=== PATIENT | female | born 1940 | race Caucasian/White ===

== ENCOUNTER 2019-01-01 10:47 | Inpatient (IN) ==
[2019-01-01] MEDS ORDERED: *HR* HYDROcodone/Acet 5/325 mg TABLET PO PRN (22:30)
[2019-01-02] MEDS: Acetaminophen 325 MG TABLET PO PRN ×2 (05:12→14:40)
[2019-01-02] MEDS ORDERED: *HR* Heparin 5,000 UNIT/ML VIAL SQ SCH (06:00)
[2019-01-02] MEDS ORDERED: Aspirin Enteric Coated 81 MG Tablet PO SCH (09:00)
[2019-01-02] MEDS: Cholecalciferol (D-3) 1,000 UNIT TABLET PO SCH (09:25)
[2019-01-02] MEDS ORDERED: *HR* HYDROcodone/Acet 5/325 mg TABLET PO PRN ×2 (09:34→09:35)
--- NOTE | 2019-01-02 15:42 | Internal Med History&Physical ---
Date of Encounter: 01/02/19 Time of Encounter: 15:15 Assessment and Plan (1) Fracture, intertrochanteric, left femur Current visit: No Status: Acute Status post nailing repair. Continue therapy intervention. Qualifiers: Encounter type: initial encounter Fracture type: closed Qualified Code(s): S72.142A - Displaced intertrochanteric fracture of left femur, initial encounter for closed fracture (2) Fracture of left distal radius Current visit: No Status: Acute Status post plate and screw repair. Continue therapy intervention. Qualifiers: Encounter type: initial encounter Fracture type: closed Fracture morphology: unspecified fracture morphology Qualified Code(s): S52.502A - Unspecified fracture of the lower end of left radius, initial encounter for closed fracture (3) Anemia Current visit: Yes Status: Acute Will hold aspirin. Use Lovenox for DVT prophylaxis. Check anemia testing in a.m. Qualifiers: Anemia type: unspecified type Qualified Code(s): D64.9 - Anemia, unspecified Internal Medicine - H&P: HPI Chief complaint: Right arm and leg fracture Admitted From: Hospital to Hospital Transfer Plans for Post Hospital Care: Home History of present illness: Ms. Torres is a 78 year old female who is transferred to [facility] swing bed after a December 27 [facility] stay following a fall at home with left femoral neck and radius fracture. She underwent ORIF surgical repair on 12/28/2018. Her postop course was unremarkable and she was discharged to [facility] swing bed for ongoing rehabilitation therapy prior to returning to independent living. 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 She denies gout or other bone joint or muscle disorders. Past Med Surg Social Fam HX - Past Medical History Medical history: no medical history Additional medical history: acid reflux, retinal artery occlusion Psychiatric history: anxiety - Past Surgical History Surgical History: non-contributory Additional surgical history: benign breast tumor removed x2 - Social History Smoking Status: Never smoker Smokeless Tobacco Status: No Alcohol use: none Drug use: none - Family History Brother Hx Family Cancer: Yes Sister Living Status: Hx Family Respiratory Disorders: Yes (COPD) Internal Medicine - H&P: Meds Sertraline [Zoloft] 50 mg PO DAILY 12/27/18 [History] Aspirin [Lo-Dose Aspirin EC] 81 mg PO QPM 12/28/18 [History] Cholecalciferol (D-3) [Vitamin D] 1,000 unit PO DAILY 12/28/18 [History] Enoxaparin [Lovenox] 30 mg SQ DAILY #30 syr 12/31/18 [Rx] HYDROcodone/Acet 5/325 mg [[place] 5-325 mg] 1 tab PO Q4H PRN 7 Days #10 tab 12/31/18 [Rx] Allergy/AdvReac Type Severity Reaction Status Date / Time No Known Allergies Allergy Verified 12/29/18 14:36 All Systems PM: A 10-system review of systems was performed and is negative for pertinent findings except as documented above in the HPI. Review of systems: Gen.: She states her weight has been stable for several months Cardiovascular: She denies hypertension SD heart failure angina DVT or pulmonary embolus Respiratory: She is a lifelong nonsmoker and denies chronic lung disease GI: She denies disorders of her liver gallbladder or exocrine pancreas : She has had kidney stones remotely. She denies other kidney or bladder disorders. 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 She denies other large distribution strokes or seizures. Endocrine: She denies diabetes thyroid disease or hyperlipidemia Hematology/oncology: She denies blood disorders cancers or anemia Psychiatric: She is on Zoloft but is unsure why. She states she has some anxie ty but denies other mental health diagnoses. [place] skeletal: As per history of present illness - Constitutional Vitals: Temp Pulse Resp BP Pulse Ox 98.4 F 66 16 117/62 97 01/02/19 14:26 01/02/19 14:26 01/02/19 14:26 01/02/19 14:26 01/02/19 14:26 Exam: Gen.: She is a well-developed lean female resting comfortably in bed who appears in no acute distress HEENT: Head is atraumatic and normocephalic. Eyes: EOMI. There is no scleral icterus. Mouth: Mucosa is moist. Neck: Supple and nontender. There is no thyromegaly or adenopathy noted. Heart: Regular without murmurs gallops or ectopics Lungs: No wheezes or crackles are heard. Abdomen: Soft and nontender. No masses or guarding are noted. Extremities: She is wearing a left arm immobilizer. She is wearing NICCI hose which I did not remove. There is no edema palpated through the NICCI hose. She has mild DJD changes of her hands. Neurologic: Mental status: She is talkative and a good historian. Cranial nerves: Smile is symmetric. Forehead wrinkles bilaterally. Tongue protrudes midline. EOMI. Motor: There is no pronator drift. Cerebellar: Finger to nose is intact bilaterally. Skin: Warm and dry
[2019-01-03] MEDS: Acetaminophen 325 MG TABLET PO PRN (01:05)
[2019-01-03] MEDS: traMADol 50 MG TABLET PO PRN ×2 (04:21→16:42)
[2019-01-03] MEDS: *HR* Enoxaparin 30 MG/0.3 ML SYRINGE SQ SCH (06:08)
[2019-01-03 06:40] LABS: Basophils # 0.1 K/mcL (0.0-0.2); Basophils % 0.7 %; Eosinophils # 0.3 K/mcL (0.0-0.6); Eosinophils % 4.4 %; Hemoglobin 8.8 g/dL (11.5-15.4); Immature Granulocytes % 0.5 % (0-4); Lymphocytes # 2.2 K/mcL (0.6-4.6); Lymphocytes % 30.1 %; Mean Corpuscular HGB Conc 32.6 g/dL (31.6-35.5); Mean Corpuscular Hemoglobin 29.8 pg (28.0-33.3); Mean Corpuscular Volume 91.5 fL (83.0-100.0); Monocytes # 0.7 K/mcL (0.0-1.3); Monocytes % 10.1 %; Platelet Count 308 K/mcL (140-400); Red Blood Count 2.95 M/mcL (3.82-4.97); Red Cell Distribution Width 15.6 % (11.5-14.5); Segmented Neutrophils % 54.2 %
[2019-01-03 08:57] LABS: % Iron Saturation 20 % (15-50); Iron 56 mcg/dL (50-170); Transferrin 200 mg/dL (203-362)
[2019-01-03 09:15] LABS: Ferritin 106 ng/mL (10-120)
[2019-01-03 09:19] LABS: Folate 13.1 ng/mL (3.0-16.0)
[2019-01-03] MEDS: Cholecalciferol (D-3) 1,000 UNIT TABLET PO SCH (10:01)
--- NOTE | 2019-01-03 12:12 | Internal Med Progress Note ---
Date of Encounter: 01/03/19 Time of Encounter: 12:04 - Assessment and plan (1) Fracture, intertrochanteric, left femur Current Visit: No Status: Acute Assessment and plan: January 03. Status post nailing repair. Continue therapy intervention. Continue Lovenox for DVT prophylaxis. Qualifiers: Encounter type: initial encounter Fracture type: closed Qualified Code(s): S72.142A - Displaced intertrochanteric fracture of left femur, initial encounter for closed fracture (2) Fracture of left distal radius Current Visit: No Status: Acute Assessment and plan: January 03. Status post plate and screw repair. Continue therapy. Qualifiers: Encounter type: initial encounter Fracture type: closed Fracture morphology: unspecified fracture morphology Qualified Code(s): S52.502A - Unspecified fracture of the lower end of left radius, initial encounter for closed fracture (3) Anemia Current Visit: Yes Status: Acute Assessment and plan: January 03. Hemoglobin improved to 8.8. Restart aspirin. She states it was originally given for past "stroke" involving her left eye. Qualifiers: Anemia type: unspecified type Qualified Code(s): D64.9 - Anemia, unspecified - Subjective Interval history: January 03. She has no new complaints and feels well. - Constitutional Vitals: Temp Pulse Resp BP Pulse Ox 98.3 F 60 16 114/67 95 01/03/19 06:23 01/03/19 06:23 01/03/19 06:23 01/03/19 06:23 01/03/19 06:23 Exam: She is resting comfortably in bed and appears in no acute distress. Her affect is bright and cheerful. I reviewed her medications and lab results. Internal Medicine: Result - Labs CBC & Chem 7: 01/03/19 06:09 Labs: Short CBC 01/03/19 Range/Units 06:09 WBC 7.3 (4.3-11.1) K/mcL Hgb 8.8 L (11.5-15.4) g/dL Hct 27.0 L (35.3-44.9) % Plt Count 308 (140-400) K/mcL Neutrophils # 4.0 (1.6-8.9) K/mcL Consult Discharge Plan - Plan Referrals: Elkin Bobby MD [Primary Care Provider] - 1 week
[2019-01-04] MEDS: *HR* Enoxaparin 30 MG/0.3 ML SYRINGE SQ SCH (05:28)
[2019-01-04] MEDS: traMADol 50 MG TABLET PO PRN ×2 (05:29→13:47)
[2019-01-04] MEDS: Aspirin Enteric Coated 81 MG Tablet PO SCH (08:58)
[2019-01-04] MEDS: Cholecalciferol (D-3) 1,000 UNIT TABLET PO SCH (08:58)
[2019-01-05] MEDS: traMADol 50 MG TABLET PO PRN ×3 (00:29→18:48)
[2019-01-05] MEDS: *HR* Enoxaparin 30 MG/0.3 ML SYRINGE SQ SCH (06:09)
[2019-01-05] MEDS: Cholecalciferol (D-3) 1,000 UNIT TABLET PO SCH (09:55)
[2019-01-05] MEDS: Aspirin Enteric Coated 81 MG Tablet PO SCH (09:55)
[2019-01-06] MEDS: Acetaminophen 325 MG TABLET PO PRN (03:53)
[2019-01-06] MEDS: *HR* Enoxaparin 30 MG/0.3 ML SYRINGE SQ SCH (05:43)
[2019-01-06] MEDS: traMADol 50 MG TABLET PO PRN ×2 (05:46→11:27)
[2019-01-06 06:49] LABS: Basophils # 0.1 K/mcL (0.0-0.2); Basophils % 0.8 %; Eosinophils # 0.3 K/mcL (0.0-0.6); Eosinophils % 3.4 %; Hematocrit 30.2 % (35.3-44.9); Hemoglobin 9.6 g/dL (11.5-15.4); Immature Granulocytes % 0.8 % (0-4); Lymphocytes # 2.5 K/mcL (0.6-4.6); Lymphocytes % 30.2 %; Mean Corpuscular HGB Conc 31.8 g/dL (31.6-35.5); Mean Corpuscular Hemoglobin 29.7 pg (28.0-33.3); Mean Corpuscular Volume 93.5 fL (83.0-100.0); Mean Platelet Volume 8.8 fL (9.4-12.4); Monocytes # 0.9 K/mcL (0.0-1.3); Monocytes % 11.2 %; Neutrophils # 4.4 K/mcL (1.6-8.9); Platelet Count 457 K/mcL (140-400); Red Blood Count 3.23 M/mcL (3.82-4.97); Red Cell Distribution Width 15.8 % (11.5-14.5); Segmented Neutrophils % 53.6 %
[2019-01-06] MEDS: Aspirin Enteric Coated 81 MG Tablet PO SCH (08:36)
[2019-01-06] MEDS: Cholecalciferol (D-3) 1,000 UNIT TABLET PO SCH (08:36)
[2019-01-06] MEDS: Bisacodyl 10 MG RECTAL SUPPOSITORY RC PRN (11:19)
--- NOTE | 2019-01-06 12:02 | Internal Med Progress Note ---
Date of Encounter: 01/06/19 Time of Encounter: 11:52 - Assessment and plan (1) Fracture, intertrochanteric, left femur Current Visit: No Status: Acute Assessment and plan: January 03. Status post nailing repair. Continue therapy intervention. Continue Lovenox for DVT prophylaxis. January 06. Change Tylenol to scheduled. Continue Ultram when necessary. Qualifiers: Encounter type: initial encounter Fracture type: closed Qualified Code(s): S72.142A - Displaced intertrochanteric fracture of left femur, initial encounter for closed fracture (2) Fracture of left distal radius Current Visit: No Status: Acute Assessment and plan: January 03. Status post plate and screw repair. Continue therapy. Qualifiers: Encounter type: initial encounter Fracture type: closed Fracture mo rphology: unspecified fracture morphology Qualified Code(s): S52.502A - Unspecified fracture of the lower end of left radius, initial encounter for closed fracture (3) Anemia Current Visit: Yes Status: Acute Assessment and plan: January 03. Hemoglobin improved to 8.8. Restart aspirin. She states it was originally given for past "stroke" involving her left eye. January 06. Hemoglobin improved to 9.6. Continue to monitor Qualifiers: Anemia type: unspecified type Qualified Code(s): D64.9 - Anemia, unspe cified - Subjective Interval history: January 03. She has no new complaints and feels well. January 06. She has no new complaints. She reports pain and her left upper leg and slight pain in her left arm. - Constitutional Vitals: Temp Pulse Resp BP Pulse Ox 98.3 F 69 18 120/68 96 01/06/19 06:37 01/06/19 06:37 01/06/19 06:37 01/06/19 06:37 01/06/19 06:37 Exam: She is sitting on the side of bed resting comfortably. Her affect is bright and cheerful. I reviewed her medications and lab results. Internal Medicine: Result - Labs CBC & Chem 7: 01/06/19 05:35 Labs: Short CBC 01/06/19 Range/Units 05:35 WBC 8.3 (4.3-11.1) K/mcL Hgb 9.6 L (11.5-15.4) g/dL Hct 30.2 L (35.3-44.9) % Plt Count 457 H (140-400) K/mcL Neutrophils # 4.4 (1.6-8.9) K/mcL - VTE Documentation of Mechanical Device: Graduated compression elastic hosiery Consult Discharge Plan - Plan Referrals: Elkin Bobby MD [Primary Care Provider] - 1 week
[2019-01-06] MEDS: Acetaminophen 325 MG TABLET PO SCH ×2 (13:27→17:37)
[2019-01-07] MEDS: Acetaminophen 325 MG TABLET PO SCH ×3 (00:46→13:07)
[2019-01-07] MEDS: *HR* Enoxaparin 30 MG/0.3 ML SYRINGE SQ SCH (06:25)
[2019-01-07] MEDS ORDERED: Ondansetron ODT 4 MG TAB.RAPDIS SL PRN (09:28)
[2019-01-07] MEDS: traMADol 50 MG TABLET PO PRN (09:34)
[2019-01-07] MEDS: Aspirin Enteric Coated 81 MG Tablet PO SCH (09:34)
[2019-01-07] MEDS: Cholecalciferol (D-3) 1,000 UNIT TABLET PO SCH (09:34)
[2019-01-08] MEDS: Acetaminophen 325 MG TABLET PO SCH ×5 (00:13→20:57)
[2019-01-08] MEDS: *HR* Enoxaparin 30 MG/0.3 ML SYRINGE SQ SCH (06:32)
[2019-01-08] MEDS: Cholecalciferol (D-3) 1,000 UNIT TABLET PO SCH (07:49)
[2019-01-08] MEDS: Aspirin Enteric Coated 81 MG Tablet PO SCH (07:50)
--- NOTE | 2019-01-08 11:18 | Internal Med Progress Note ---
Date of Encounter: 01/08/19 Time of Encounter: 11:10 - Assessment and plan (1) Fracture, intertrochanteric, left femur Current Visit: No Status: Acute Assessment and plan: January 03. Status post nailing repair. Continue therapy intervention. Continue Lovenox for DVT prophylaxis. January 06. Change Tylenol to scheduled. Continue Ultram when necessary. Qualifiers: Encounter type: initial encounter Fracture type: closed Qualified Code(s): S72.142A - Displaced intertrochanteric fracture of left femur, initial encounter for closed fracture (2) Fracture of left distal radius Current Visit: No Status: Acute Assessment and plan: January 03. Status post plate and screw repair. Continue therapy. Qualifiers: Encounter type: initial encounter Fracture type: closed Fracture mo rphology: unspecified fracture morphology Qualified Code(s): S52.502A - Unspecified fracture of the lower end of left radius, initial encounter for closed fracture (3) Anemia Current Visit: Yes Status: Acute Assessment and plan: January 03. Hemoglobin improved to 8.8. Restart aspirin. She states it was originally given for past "stroke" involving her left eye. January 06. Hemoglobin improved to 9.6. Continue to monitor Qualifiers: Anemia type: unspecified type Qualified Code(s): D64.9 - Anemia, unspe cified - Subjective Interval history: January 03. She has no new complaints and feels well. January 06. She has no new complaints. She reports pain and her left upper leg and slight pain in her left arm. January 08. She has no new complaints and feels better. She was informed insurance has determined she will be discharged home 01/10/2019. - Constitutional Vitals: Temp Pulse Resp BP Pulse Ox 97.9 F 68 13 134/68 97 01/08/19 06:27 01/08/19 06:27 01/08/19 06:27 01/08/19 06:27 01/08/19 06:27 Exam: She is resting comfortably on the side of the bed and appears in no acute distress. Her affect is cheerful. She was appropriate in conversation. I reviewed her medications and lab results. Internal Medicine: Result - Labs CBC & Chem 7: 01/06/19 05:35 - VTE Documentation of Mechanical Device: Graduated compression elastic hosiery Consult Discharge Plan - Plan Referrals: Elkin Bobby MD [Primary Care Provider] - 1 week
[2019-01-09] MEDS: Acetaminophen 325 MG TABLET PO SCH ×5 (01:06→23:25)
[2019-01-09] MEDS: *HR* Enoxaparin 30 MG/0.3 ML SYRINGE SQ SCH (05:42)
[2019-01-09] MEDS: Cholecalciferol (D-3) 1,000 UNIT TABLET PO SCH (08:26)
[2019-01-09] MEDS: Aspirin Enteric Coated 81 MG Tablet PO SCH (08:26)
[2019-01-09] MEDS: Bisacodyl 10 MG RECTAL SUPPOSITORY RC PRN (08:29)
[2019-01-09 19:34] VITALS: BP 116/59
[2019-01-10] MEDS: *HR* Enoxaparin 30 MG/0.3 ML SYRINGE SQ SCH (05:52)
[2019-01-10] MEDS: Acetaminophen 325 MG TABLET PO SCH (05:53)
[2019-01-10] MEDS: Aspirin Enteric Coated 81 MG Tablet PO SCH (08:06)
[2019-01-10] MEDS: Cholecalciferol (D-3) 1,000 UNIT TABLET PO SCH (08:06)
--- NOTE | 2019-01-10 09:33 | Discharge Summary ---
Date of Encounter: 01/10/19 Time of Encounter: 09:20 - Discharge Diagnosis (1) Fracture, intertrochanteric, left femur Priority: Primary Status: Acute Qualifiers: Encounter type: initial encounter Fracture type: closed Qualified Code(s): S72.142A - Displaced intertrochanteric fracture of left femur, initial encounter for closed fracture (2) Fracture of left distal radius Priority: Secondary Status: Acute Qualifiers: Encounter type: initial encounter Fracture type: closed Fracture morphology: unspecified fracture morphology Qualified Code(s): S52.502A - Unspecified fracture of the lower end of left radius, initial encounter for closed fracture (3) Anemia Priority: Secondary Status: Acute Qualifiers: Anemia type: unspecified type Qualified Code(s): D64.9 - Anemia, unspecified Hospital course: Ms. Torres is a 78 year old female who was transferred to [facility] swing bed after a December 27 [facility] stay following a fall at home with left femoral neck and radius fracture. She underwent ORIF surgical repair on 12/28/2018. Her postop course was unremarkable and she was discharged to [facility] swing bed for ongoing rehabilitation therapy prior to returning to independent living. Initial orders were written by the discharging physicians at [facility]. I saw her on January 02 and performed the swing bed history and physical. She had physical therapy and occupational therapy evaluation with ongoing intervention. She made satisfactory progress. There were no complications and on January 10 she was stable for discharge home. Hemoglobin improved to 9.6 on 01/06/2019. Anemia testing showed no factor deficiency. She will follow with her PCP Dr. Bobby within 1 week. She will follow with her orthopedic provider as directed. Home health services will be ordered at discharge. - Time Spent with Patient Total time spent providing and/or coordinating discharge services: - Discharge Medications Prescriptions: Continue Sertraline [Zoloft] 50 mg PO DAILY Cholecalciferol (D-3) [Vitamin D] 1,000 unit PO DAILY Aspirin [Lo-Dose Aspirin EC] 81 mg PO QPM Discontinued Enoxaparin [Lovenox] 30 mg SQ DAILY #30 syr Home Medications: Sertraline [Zoloft] 50 mg PO DAILY 12/27/18 [History] Aspirin [Lo-Dose Aspirin EC] 81 mg PO QPM 12/28/18 [History] Cholecalciferol (D-3) [Vitamin D] 1,000 unit PO DAILY 12/28/18 [History] Allergies/Adverse Reactions: Allergy/AdvReac Type Severity Reaction Status Date / Time acetaminophen [From [place]] Allergy Hives Verified 01/03/19 03:30 hydrocodone [From [place]] Allergy Hives Verified 01/03/19 03:30 Date of admission: 01/01/19 20:44 Primary care physician: Elkin Bobby MD Consults: 01/01/19 22:06 Consult to Occupational Therapy [CONS] Routine Comment: Evalute patient, develop and implement POC Reason for Consult: Evalute patient, develop plan of care, and implement plan of care. Does patient have active BEDREST order?: No Is patient medically & hemodynamically stable?: Yes Patient assessed for mobility or mobilized this visit?: Yes Consult to Physical Therapy [CONS] Routine Comment: Evalute, develop and implement POC Reason for Consult: Evalute patient, develop plan of care, and implement plan of care. Does patient have active BEDREST order?: No Is patient medically & hemodynamically stable?: Yes Patient assessed for mobility or mobilized this visit?: Yes Consult to [facility] [CONS] Routine Reason for SW Consult: Evalute patient, develop plan of care, and implement plan of care. - Constitutional Vitals: Temp Pulse Resp BP Pulse Ox 98.2 F 81 16 116/59 96 01/09/19 19:31 01/09/19 19:31 01/09/19 19:31 01/09/19 19:31 01/09/19 19:31 - Patient Status Disposition: Home Health Service - Discharge Instructions Follow Up With: Elkin Bobby MD [Primary Care Provider] - 1 week - Diet and Activity Activity: as per physical therapy Diet: advance to your usual diet - VTE Documentation of Mechanical Device: Graduated compression elastic hosiery
--- NOTE | 2019-01-10 09:39 | Physician Discharge Referral ---
Home Health/Hosp Referral Info Transfer to: Home Health Attending Provider: Jone Provider in Charge Post Discharge: PCP (Diamante) - Diagnosis (1) Fracture, intertrochanteric, left femur Priority: Primary Status: Acute (2) Fracture of left distal radius Priority: Secondary Status: Acute (3) Anemia Priority: Secondary Status: Acute - Respiratory Orders Smoking Cessation: Smoking cessation has been advised. For more information, call the [place] Tobacco Quit Line at 9-328-HIDH-NOW. - Diet/Nutrition Diet/Nutrition Orders: Regular - Activity Activity Orders: Walker - Services Needed Following services are medically necessary services: Nursing, Home Health Aide, Physical Therapy, Occupational Therapy - Transfer Medications Home Medications: Sertraline [Zoloft] 50 mg PO DAILY 12/27/18 [History] Aspirin [Lo-Dose Aspirin EC] 81 mg PO QPM 12/28/18 [History] Cholecalciferol (D-3) [Vitamin D] 1,000 unit PO DAILY 12/28/18 [History] Allergies/Adverse Reactions: Allergy/AdvReac Type Severity Reaction Status Date / Time acetaminophen [From [place]] Allergy Hives Verified 01/03/19 03:30 hydrocodone [From [place]] Allergy Hives Verified 01/03/19 03:30 Certification: Further, I certify that my clinical findings support that this patient is homebound (i.e. absences from home require considerable and taxing effort and are for medical reasons or cheondoism services or infrequently or short duration when for other reasons) because: Homebound Reason: Leaving home requires considerable and taxing effort due to condition (Hip and arm fracture) Attestation: My signature below is to certify that this patient is under my care and that I, or nurse practitioner, or a physician's faculty research assistant working with me, has a [id number] encounter with this patient.
== END 2019-01-10 11:15 | disposition home health service (06) | DRG 561 ==
LOC: INPPIK 20:44
PROVIDERS: ADMIT Internal Medicine; ATTEND Internal Medicine

== ENCOUNTER 2021-01-05 14:53 | Inpatient (IN) ==
[2021-01-05] MEDS: Sulfamethoxazole/Trimeth DS 1 EACH TABLET PO SCH (22:12)
[2021-01-05] MEDS: *HR* OxyCODONE/APAP 5/325 TABLET PO PRN (22:12)
[2021-01-06 03:48] LABS: Basophils % 0.4 %; Eosinophils # 0.5 K/mcL (0.0-0.6); Eosinophils % 6.7 %; Hematocrit 30.6 % (35.3-44.9); Hemoglobin 9.7 g/dL (11.5-15.4); Immature Granulocytes % 0.6 % (0-4); Lymphocytes # 2.1 K/mcL (0.6-4.6); Lymphocytes % 30.7 %; Mean Corpuscular HGB Conc 31.7 g/dL (31.6-35.5); Mean Corpuscular Hemoglobin 29.8 pg (28.0-33.3); Mean Corpuscular Volume 93.9 fL (83.0-100.0); Mean Platelet Volume 8.7 fL (9.4-12.4); Monocytes # 0.8 K/mcL (0.0-1.3); Monocytes % 11.5 %; Neutrophils # 3.4 K/mcL (1.6-8.9); Platelet Count 355 K/mcL (140-400); Red Blood Count 3.26 M/mcL (3.82-4.97); Red Cell Distribution Width 14.2 % (11.5-14.5); Segmented Neutrophils % 50.1 %; White Blood Count 6.7 K/mcL (4.3-11.1)
[2021-01-06 04:40] LABS: BUN/Creatinine Ratio 36 (6-26); Blood Urea Nitrogen 28 mg/dL (8-23); Calcium 9.6 mg/dL (8.6-10.3); Carbon Dioxide 30 mEq/L (23-29); Chloride 102 mEq/L (98-107); Glucose 117 mg/dL (70-105); Osmolality,Calculated 293 (280-300); Potassium 4.2 mEq/L (3.5-5.1); Sodium 138 mEq/L (136-145); eGFR For African Americans > 60 (> 60); eGFR For Non-African Americans > 60 (> 60)
[2021-01-06] MEDS: Aspirin Enteric Coated 325 MG Tablet PO SCH (09:07)
[2021-01-06] MEDS: Sulfamethoxazole/Trimeth DS 1 EACH TABLET PO SCH ×2 (09:08→19:52)
[2021-01-06] MEDS: *HR* OxyCODONE/APAP 5/325 TABLET PO PRN (17:54)
[2021-01-07] MEDS: *HR* OxyCODONE/APAP 5/325 TABLET PO PRN ×3 (02:36→20:19)
[2021-01-07] MEDS: Aspirin Enteric Coated 325 MG Tablet PO SCH (08:13)
[2021-01-07] MEDS: Sulfamethoxazole/Trimeth DS 1 EACH TABLET PO SCH ×2 (08:14→20:19)
[2021-01-08] MEDS: *HR* OxyCODONE/APAP 5/325 TABLET PO PRN ×4 (03:32→21:56)
[2021-01-08] MEDS: Aspirin Enteric Coated 325 MG Tablet PO SCH (09:04)
[2021-01-08 20:38] LABS: Bilirubin,Urine Negative (Negative); Blood,Urine Negative (Negative); Clarity,Urine Clear (Clear); Color,Urine Yellow (Yellow); Glucose,Urine (UA) Normal (Normal); Ketones,Urine Negative (Negative); Leukocyte Esterase,Urine Negative (Negative); Nitrite,Urine Negative (Negative); PH,Urine 5.5 pH Units (5.0-8.0); Protein,Urine Negative (Neg-Trace); Specific Gravity,Urine >= 1.030 (1.010-1.025); Urobilinogen,Urine Normal (Normal)
[2021-01-09] MEDS: Aspirin Enteric Coated 325 MG Tablet PO SCH (08:56)
[2021-01-09] MEDS: *HR* OxyCODONE/APAP 5/325 TABLET PO PRN ×2 (11:26→19:33)
[2021-01-10] MEDS: *HR* OxyCODONE/APAP 5/325 TABLET PO PRN ×2 (01:58→21:27)
[2021-01-10] MEDS: Aspirin Enteric Coated 325 MG Tablet PO SCH (08:06)
[2021-01-10] MEDS: Melatonin 3 MG TABLET PO PRN (21:27)
[2021-01-11] MEDS: Aspirin Enteric Coated 325 MG Tablet PO SCH (08:25)
[2021-01-11] MEDS: *HR* OxyCODONE/APAP 5/325 TABLET PO PRN ×2 (09:49→21:04)
[2021-01-11] MEDS: Melatonin 3 MG TABLET PO PRN (21:05)
[2021-01-12] MEDS: Aspirin Enteric Coated 325 MG Tablet PO SCH (08:35)
[2021-01-12] MEDS: *HR* OxyCODONE/APAP 5/325 TABLET PO PRN (20:08)
[2021-01-13] MEDS: Aspirin Enteric Coated 325 MG Tablet PO SCH (08:13)
[2021-01-13] MEDS: *HR* OxyCODONE/APAP 5/325 TABLET PO PRN ×2 (08:15→23:15)
[2021-01-13] MEDS: Melatonin 3 MG TABLET PO PRN (23:16)
[2021-01-14 04:28] LABS: Basophils # 0.1 K/mcL (0.0-0.2); Basophils % 0.7 %; Eosinophils # 0.2 K/mcL (0.0-0.6); Eosinophils % 1.5 %; Hematocrit 29.2 % (35.3-44.9); Hemoglobin 9.4 g/dL (11.5-15.4); Immature Granulocytes % 0.5 % (0-4); Lymphocytes # 2.2 K/mcL (0.6-4.6); Mean Corpuscular HGB Conc 32.2 g/dL (31.6-35.5); Mean Corpuscular Hemoglobin 29.7 pg (28.0-33.3); Mean Corpuscular Volume 92.4 fL (83.0-100.0); Mean Platelet Volume 8.9 fL (9.4-12.4); Monocytes # 0.8 K/mcL (0.0-1.3); Monocytes % 7.6 %; Neutrophils # 7.5 K/mcL (1.6-8.9); Platelet Count 522 K/mcL (140-400); Red Blood Count 3.16 M/mcL (3.82-4.97); Red Cell Distribution Width 14.2 % (11.5-14.5); Segmented Neutrophils % 69.7 %; White Blood Count 10.7 K/mcL (4.3-11.1)
[2021-01-14 04:44] LABS: BUN/Creatinine Ratio 25 (6-26); Blood Urea Nitrogen 17 mg/dL (8-23); Calcium 9.4 mg/dL (8.6-10.3); Carbon Dioxide 28 mEq/L (23-29); Chloride 101 mEq/L (98-107); Glucose 119 mg/dL (70-105); Osmolality,Calculated 287 (280-300); Potassium 3.8 mEq/L (3.5-5.1); Sodium 137 mEq/L (136-145); eGFR For African Americans > 60 (> 60); eGFR For Non-African Americans > 60 (> 60)
[2021-01-14] MEDS: Aspirin Enteric Coated 325 MG Tablet PO SCH (08:44)
[2021-01-14] MEDS: *HR* OxyCODONE/APAP 5/325 TABLET PO PRN ×2 (08:46→16:18)
[2021-01-14] MEDS: Melatonin 3 MG TABLET PO PRN (20:50)
[2021-01-15 06:27] VITALS: BP 125/74
[2021-01-15] MEDS: Aspirin Enteric Coated 325 MG Tablet PO SCH (09:11)
== END 2021-01-15 14:55 | disposition home health service (06) | DRG 560 ==
LOC: INPPIK 19:04
PROVIDERS: ADMIT Family Medicine; ATTEND Family Medicine